=== PATIENT | female | born 1955 | race Caucasian/White ===

== ENCOUNTER 2019-03-08 11:07 | Emergency (ER) | payer OTHER ==
--- OUTSIDE RECORDS SUMMARY | 2019-03-08 11:12 | XMS REPORT ---
:1955 [facility] Address [address] [place] [address] Care Team Providers Name Role Phone Unavailable Unavailable Unavailable Problems This patient has no known problems. Allergies, Adverse Reactions, Alerts This patient has no known allergies or adverse reactions. Medications This patient has no known medications. Results Test Description Test Time Test Comments Text Results Atomic Results Result Comments NM BONE SPECT SCAN CLINICAL INDICATION: M47.817 Spondyls w/o myelopathy or radiculopathy, lumbosacr regionMODALITY: Stockpile dual head gamma cameraTECHNIQUE: 25 mCi Tc 99m MDP are injected IV. After a suitable time delay, whole body imaging images were obtained. SPECT imaging of the lumbar spine is performed with computer and physician-assisted 2-D and 3-D reconstruction.FINDINGS:COMPARISON: Lumbar spine series performed 01/23/2018:Five lumbar type vertebra are present. Mild L4-5 disc space narrowing is observed. Mild to moderate lumbosacral facet arthrosis is observed. There is minimal approximate 2.0 mm retrolisthesis of L2 and approximate 2.0 mm spondylolisthesis of L4. No evidence of dynamic instability. Sclerotic changes are present at the SI joints bilaterally.Symmetric bilateral renal function is observed.Diffuse calvarial hyperostosis is observed. Mild to moderate maxillary and mandibular periodontal change is observed. There are symmetric arthritic changes noted at the acromioclavicular, glenohumeral, sternoclavicular joints bilaterally. Mild to moderate uptake is seen at the left mid foot.SPECT imaging of the lumbar spine demonstrates no significant intervertebral disc uptake to be present. There is mild right L4-5, mild to moderate left L4-5 facet uptake seen. Moderate symmetric SI joint uptake is present.IMPRESSION:See comments above.PQRS 147: [id number]
--- NOTE | 2019-03-08 11:21 | RAD REPORT ---
EXAM DESCRIPTION: CT - Ct Stroke Brain Wo Cont - 03/08/2019 11:14 am CLINICAL HISTORY: NUMBNESS Headache, drowsiness, CVA symptomology COMPARISON: No comparisons TECHNIQUE: All CT scans are performed using dose optimization technique as appropriate and may inclu de automated exposure control or mA/KV adjustment according to patient size. FINDINGS: No intracranial hemorrhage, hydrocephalus or extra-axial fluid collection.No areas of brai n edema or evidence of midline shift. Chronic sinus disease likely present in the maxillary antra. The calvarium is intact. IMPRESSION: No acute intracranial abnormality. The findings were discussed with Dr. Denney on 03/08/2019 at 11:12 a.m. by telephone.
[2019-03-08 11:38] LABS: Absolute Lymphocytes (CBC) 2.1 K/uL (0.7-4.9); Absolute Monocytes 0.6 K/uL (0.1-1.3); Basophils % 0.8 % (0-1.3); Eosinophils % 5.1 % (0-4.4); Hematocrit 38.8 % (36.0-45.0); Lymphocytes % 33.9 % (15.3-44.8); MPV 8.3 fL (7.6-11.3); Monocytes % 10.1 % (3.3-12.3); RBC Red Blood Cell Count 4.24 M/uL (3.86-4.86)
[2019-03-08 11:41] LABS: Protime INR 0.96
--- NOTE | 2019-03-08 11:49 | RAD REPORT ---
EXAM DESCRIPTION: RAD - Chest Single View - 03/08/2019 11:41 am CLINICAL HISTORY: r/o CVA Chest pain. COMPARISON: Chest Pa And Lat (2 Views) dated 05/25/2018; Abdomen Acute Series dated 01/23/2018; CHEST PA AND LAT 2 VIEW dated 12/25/2012; ABDOMEN ACUTE SERIES dated 02/06/2006 FINDINGS: Portable technique limits examination quality. The lungs are grossly clear. The heart is normal in size. No displaced fractures. IMPRESSION: No acute intrathoracic process suspected.
--- NOTE | 2019-03-08 13:51 | ER ---
Nurse's Notes [facility] Name: Jeison Gonzales Age: 64 yrs Sex: Female : 1955 Arrival Date: 03/08/2019 Time: 11:07 Bed 3 Private MD: Diagnosis: Transient cerebral ischemic attacks and related syndromes Presentation: 03/08 11:01 Presenting complaint: Patient states: "about 10 minutes ago both of my lips went numb sv and my vision looked like a zig-zag." Spouse reports "she is also speaking funny." Pt ambulated with her spouse in the back ambulance bay. Transition of care: patient was not received from another setting of care. Onset of symptoms was March 08, 2019 at 10:50. Risk Assessment: Do you want to hurt yourself or someone else? Patient reports no desire to harm self or others. Initial Sepsis Screen: Does the patient meet any 2 criteria? No. Patient's initial sepsis screen is negative. Does the patient have a suspected source of infection? No. Patient's initial sepsis screen is negative. Care prior to arrival: None. 11:01 Method Of Arrival: Ambulatory sv 11:01 Acuity: NEGIN 2 sv 11:35 No acute neurological deficit is noted. Pre-hospital glucose is not applicable to this tw2 patient. Triage Assessment: 11:21 General: Appears in no apparent distress. Behavior is calm, cooperative, appropriate tw2 for age. Pain: Denies pain. 17:02 The onset of the patients symptoms was less than three hours ago. tw2 19:03 The onset of the patients symptoms was March 08, 2019 at 11:16. tw2 Stroke Activation: Symptom onset < 3 hours Physician: Stroke Attending; Name: ; Notified At: ; Arrived At: Physician: Chief Stroke Resident; Name: ; Notified At: ; Arrived At: Physician: Stroke Resident; Name: ; Notified At: ; Arrived At: Physician: ED Attending; Name: Dr Finn; Notified At: 11:03; Arrived At: Physician: ED Resident; Name: ; Notified At: ; Arrived At: Historical: - Allergies: 11:12 Latex, Natural Rubber; sv 11:12 Sulfa (Sulfonamide Antibiotics); sv 11:12 Bactrim DS; sv - PMHx: 11:12 Thyroid problem; High Cholesterol; Hypertension; sv - PSHx: 11:11 Cholecystectomy; sv - Immunization history:: Adult Immunizations up to date. - Social history:: Smoking status: unknown. - Ebola Screening: : No symptoms or risks identified at this time. Screenin:21 Abuse screen: Denies threats or abuse. Nutritional screening: No deficits noted. tw2 Tuberculosis screening: No symptoms or risk factors identified. Fall Risk None identified. 12:07 Patient has been NPO before screening. The patient is alert, able to follow commands. sv The patient does not exhibit slurred or garbled speech The patient is not exhibiting difficulty speaking. The patient does not exhibit difficulty understanding words. The patient is able to swallow own secretions with no drooling or need for suction. Patient tolerated one teaspoon of water. No drooling, immediate coughing, gurgling, or clearing of the throat was noted. The patient tolerated 90mL of water. No drooling, immediate coughing, gurgling, or clearing of the throat was noted. The patient passed the bedside swallow screening. Oral medications may be given as ordered. Contact Physician for further diet orders. Provider notified of bedside swallow screening results: Ayo Finn MD. Assessment: 11:03 Reassessment: Code Stroke called. sv 11:16 Reassessment: Dr. Finn at bedside at this time. tw2 11:31 VAN Scoring: Arm Drift: Patients demonstrates NO arm weakness. Patient is VAN Negative. tw2 Visual Disturbance: Field Cut: Abnormal visual rangel noted. Provider notified of +VAN scoring. Patient has been NPO before screening. The patient is alert, and able to follow commands. The patient does not exhibit slurred or garbled speech. The patient is not exhibiting difficulty speaking. The patient does not exhibit difficulty understanding words. The patient is able to swallow own secretions with no drooling or need for suction. Patient tolerated one teaspoon of water. No drooling, immediate coughing, gurgling, or clearing of the throat was noted. The patient tolerated 90mL of water. No drooling, immediate coughing, gurgling, or clearing of the throat was noted. The patient passed the bedside swallow screening. Oral medications may be given as ordered. Contact Physician for further diet orders. Provider notified of bedside swallow screening results: Ayo Finn MD. General: Appears in no apparent distress. obese, well groomed, Behavior is calm, cooperative, appropriate for age. Pain: Denies pain. Neuro: Level of Consciousness is awake, alert, obeys commands, Oriented to person, place, time, situation. Cardiovascular: Heart tones S1 S2 Capillary refill < 3 seconds Patient's skin is warm and dry. Respiratory: Airway is patent Respiratory effort is even, unlabored, Respiratory pattern is regular, symmetrical, Breath sounds are clear bilaterally. GI: No signs and/or symptoms were reported involving the gastrointestinal system. Abdomen is round non-distended, obese, Bowel sounds present X 4 quads. : No signs and/or symptoms were reported regarding the genitourinary system. EENT: No signs and/or symptoms were reported regarding the EENT system. Derm: No signs and/or symptoms reported regarding the dermatologic system. Musculoskeletal: No signs and/or symptoms reported regarding the musculoskeletal system. Capillary refill < 3 seconds, Range of motion:. 11:31 T-PA (Activase) Screening: Contraindications: Other: per Dr. Finn based on resolution tw2 of symptoms and NIHscore no need for tpa at this time. 12:04 Reassessment: Family decided to get transferred to [facility]. Neuro: Reports sv numbness in mouth, right side of forehead, right eye, right zygomatic area, right side of the nose, right cheek and right mandible and heaviness. 13:20 Reassessment: Patient appears in no apparent distress at this time. No changes from sv previously documented assessment. Patient and/or family updated on plan of care and expected duration. Pain level reassessed. Patient is alert, oriented x 3, equal unlabored respirations, skin warm/dry/pink. 14:25 Reassessment: Patient appears in no apparent distress at this time. No changes from sv previously documented assessment. Patient and/or family updated on plan of care and expected duration. Pain level reassessed. Patient is alert, oriented x 3, equal unlabored respirations, skin warm/dry/pink. 14:26 Reassessment: Report given to Socrates from EMS. sv Vital Signs: 11:06 Pulse 59; Resp 18; Pulse Ox 99% ; sv 11:17 BP 155 / 78; Weight 88.45 kg (R); Height 5 ft. 6 in. (167.64 cm) (R); tw2 11:41 BP 128 / 73; Pulse 56 MON; Resp 15; Pulse Ox 98% on R/A; sv 12:07 BP 129 / 74; Pulse 56 MON; Resp 16; Pulse Ox 99% ; sv 12:30 BP 124 / 64; Pulse 55; Resp 18; Pulse Ox 98% on R/A; sv 11:17 Body Mass Index 31.47 (88.45 kg, 167.64 cm) tw2 11:41 Sinus bradycardia sv 12:07 Sinus Rhythm sv NIH Stroke Scale Scores: 11:23 NIHSS Score: 1 gs 11:31 NIHSS Score: 1 tw2 ED Course: 11:07 Patient arrived in ED. sv 11:07 Gerri Payne RN is Primary Nurse. sv 11:07 Ayo Finn MD is Attending Physician. gs 11:09 Triage completed. sv 11:11 Arm band placed on. sv 11:15 CT Stroke Brain w/o Contrast In Process Unspecified. EDMS 11:16 Bed in low position. Call light in reach. Side rails up X2. shelter monitor on. Pulse tw2 ox on. NIBP on. Dr. Finn at bedside at this time. 11:16 Inserted saline lock: 20 gauge in right antecubital area, using aseptic technique. tw2 ,using aseptic technique. ELIZABETH Diaz Blood collected. Patient maintains SpO2 saturation greater than 95% on room air. 11:20 EKG done, by cartography/mapping technician. reviewed by Ayo Finn MD. at1 11:26 X-ray completed. Portable x-ray completed in exam room. Patient tolerated procedure jb2 well. 11:27 Stroke CXR 1 View In Process Unspecified. EDMS 12:58 transfer approval from receiving facility. sv 13:58 No provider procedures requiring assistance completed. Patient admitted, IV remains in sv place. intact. Administered Medications: No medications were administered Point of Care Testing: Blood Glucose: 11:06 Blood Glucose: 124 mg/dL; sv Ranges: Outcome: 13:35 Transferred by ground EMS to [facility], Transfer form completed. sv X-rays sent w/ patient. Note: Report given to Ritu JOHNSON at [facility]. 13:35 Condition: stable 13:35 Instructed on the need for admit. 13:50 ER care complete, transfer ordered by 14:26 Patient left the ED. NIH Stroke Scale - NIH Stroke Score Date: 03/08/2019 Time: 11:23 Total Score = 1 1a. Level of Consciousness (LOC) - 0(Alert) 1b. Level of Consciousness (LOC) (Year \\T\\ Age) - 0(Both) 1c. LOC Commands (Open \\T\\ Closes Eyes/Mixer Operator Raw Salt) - 0(Both) 2. Best Gaze (Lateral Gaze Paresis) - 0(Normal) 3. Visual Field Loss - 0(No visual loss) 4. Facial Palsy - 0(Normal) 5a. Left Arm: Motor (10-second hold) - 0(No drift) 5b. Right Arm: Motor (10-second hold) - 0(No drift) 6a. Left Leg: Motor (5-second hold - always test supine) - 0(No drift) 6b. Right Leg: Motor (5-second hold - always test supine) - 0(No drift) 7. Limb Ataxia (finger/nose \\T\\ heel/woo - test with eyes open) - 0(Absent) 8. Sensory Loss (pinprick arms/legs/face) - 1(Mild to moderate loss) 9. Best Language: Aphasia (description/naming/reading) - 0(No aphasia) 10. Dysarthria (speech clarity - read or repeat words) - 0(Normal) 11. Extinction and Inattention (visual/tactile/auditory/spatial/personal) - 0(No abnormality) Initials: NIH Stroke Scale - NIH Stroke Score Date: 03/08/2019 Time: 11:31 Total Score = 1 1a. Level of Consciousness (LOC) - 0(Alert) 1b. Level of Consciousness (LOC) (Year \\T\\ Age) - 0(Both) 1c. LOC Commands (Open \\T\\ Closes Eyes/Mixer Operator Raw Salt) - 0(Both) 2. Best Gaze (Lateral Gaze Paresis) - 1(Partial gaze palsy) 3. Visual Field Loss - 0(No visual loss) 4. Facial Palsy - 0(Normal) 5a. Left Arm: Motor (10-second hold) - 0(No drift) 5b. Right Arm: Motor (10-second hold) - 0(No drift) 6a. Left Leg: Motor (5-second hold - always test supine) - 0(No drift) 6b. Right Leg: Motor (5-second hold - always test supine) - 0(No drift) 7. Limb Ataxia (finger/nose \\T\\ heel/woo - test with eyes open) - 0(Absent) 8. Sensory Loss (pinprick arms/legs/face) - 0(Normal) 9. Best Language: Aphasia (description/naming/reading) - 0(No aphasia) 10. Dysarthria (speech clarity - read or repeat words) - 0(Normal) 11. Extinction and Inattention (visual/tactile/auditory/spatial/personal) - 0(No abnormality) Initials: tw2 Signatures: Dispatcher [employer] Gerri Farley RN RN Derek Gibson jb2 Leeann Baker, in home tutor EKG Tat1 Jocelyn Armando RN RN tw2 Ayo Finn MD MD gs
--- NOTE | 2019-03-08 13:51 | EDPHYS ---
Physician Documentation [facility] Name: Jeison Gonzales Age: 64 yrs Sex: Female : 1955 Arrival Date: 03/08/2019 Time: 11:07 Bed 3 Private MD: ED Physician Ayo Finn HPI: 03/08 11:23 This 64 yrs old Female presents to ER via Ambulatory with complaints of gs Numbness Of Lips, Vision Problem. 11:23 The patient presents to the emergency department with paresthesias of the right side of gs the face, a vision problem, bright lights. Onset: The symptoms/episode began/occurred at 10:50. Associated signs and symptoms: Pertinent negatives: altered mental status. Severity of symptoms: At their worst the symptoms were severe in the emergency department the symptoms have improved markedly. Patient's baseline: Neuro: alert and fully oriented, Motor: no deficits, Ambulation: walks without assistance, Speech: normal. Current symptoms: tingling numbness right face. The patient has not experienced similar symptoms in the past. Historical: - Allergies: 11:12 Latex, Natural Rubber; sv 11:12 Sulfa (Sulfonamide Antibiotics); sv 11:12 Bactrim DS; sv - PMHx: 11:12 Thyroid problem; High Cholesterol; Hypertension; sv - PSHx: 11:11 Cholecystectomy; sv - Immunization history:: Adult Immunizations up to date. - Social history:: Smoking status: unknown. - Ebola Screening: : No symptoms or risks identified at this time. ROS: 11:23 All other systems are negative. gs Exam: 11:23 Head/Face: Normocephalic, atraumatic. Eyes: Pupils equal round and reactive to light, gs extra-ocular motions intact. Lids and lashes normal. Conjunctiva and sclera are non-icteric and not injected. Cornea within normal limits. Periorbital areas with no swelling, redness, or edema. ENT: Nares patent. No nasal discharge, no septal abnormalities noted. Tympanic membranes are normal and external auditory canals are clear. Oropharynx with no redness, swelling, or masses, exudates, or evidence of obstruction, uvula midline. Mucous membranes moist. Neck: Trachea midline, no thyromegaly or masses palpated, and no cervical lymphadenopathy. Supple, full range of motion without nuchal rigidity, or vertebral point tenderness. No Meningismus. Chest/axilla: Normal chest wall appearance and motion. Nontender with no deformity. No lesions are appreciated. Cardiovascular: Regular rate and rhythm with a normal S1 and S2. No gallops, murmurs, or rubs. Normal PMI, no JVD. No pulse deficits. Respiratory: Lungs have equal breath sounds bilaterally, clear to auscultation and percussion. No rales, rhonchi or wheezes noted. No increased work of breathing, no retractions or nasal flaring. Abdomen/GI: Soft, non-tender, with normal bowel sounds. No distension or tympany. No guarding or rebound. No evidence of tenderness throughout. Back: No spinal tenderness. No costovertebral tenderness. Full range of motion. Skin: Warm, dry with normal turgor. Normal color with no rashes, no lesions, and no evidence of cellulitis. MS/ Extremity: Pulses equal, no cyanosis. Neurovascular intact. Full, normal range of motion. 11:23 Constitutional: The patient appears alert, awake. 11:23 Neuro: Orientation: is normal, Mentation: is normal, Memory: is normal, Cranial nerves: normal except decreased v2,3 on right. 11:23 Neuro: Cerebellar function: normal finger to nose testing, Motor: moves all fours, gs strength is normal, Sensation: pin prick is decreased in the right cheek and right jaw. 11:28 ECG was reviewed by the Attending Physician. Vital Signs: 11:06 Pulse 59; Resp 18; Pulse Ox 99% ; sv 11:17 BP 155 / 78; Weight 88.45 kg (R); Height 5 ft. 6 in. (167.64 cm) (R); tw2 11:41 BP 128 / 73; Pulse 56 MON; Resp 15; Pulse Ox 98% on R/A; sv 12:07 BP 129 / 74; Pulse 56 MON; Resp 16; Pulse Ox 99% ; sv 12:30 BP 124 / 64; Pulse 55; Resp 18; Pulse Ox 98% on R/A; sv 11:17 Body Mass Index 31.47 (88.45 kg, 167.64 cm) tw2 11:41 Sinus bradycardia sv 12:07 Sinus Rhythm sv NIH Stroke Scale Scores: 11:23 NIHSS Score: 1 gs 11:31 NIHSS Score: 1 tw2 MDM: 11:21 Patient medically screened. gs 13:49 Data reviewed: vital signs, nurses notes, lab test result(s), EKG, radiologic studies. gs Counseling: I had a detailed discussion with the patient and/or guardian regarding: the historical points, exam findings, and any diagnostic results supporting the discharge/admit diagnosis, lab results, radiology results, the need to transfer to another facility, [facility] does not immediately have the required specialist. Response to treatment: the patient's symptoms have markedly improved after treatment. ED course: ss 1 no tpa due to pt understanding that risk greater than benefit. no progression of symptoms. 03/08 11:07 Order name: Basic Metabolic Panel; Complete Time: 12:10 03/08 11:07 Order name: CBC with Diff; Complete Time: 12:03/08 11:07 Order name: Protime (+inr); Complete Time: 12:10 03/08 11:07 Order name: Ptt, Activated; Complete Time: 12:10 03/08 11:07 Order name: CT Stroke Brain w/o Contrast; Complete Time: 12:10 03/08 11:23 Order name: glucometer results - FOR PT WITH NO ID; Complete Time: 12:10 iw 03/08 11:07 Order name: Stroke CXR 1 View; Complete Time: 12:03/08 11:07 Order name: EKG; Complete Time: 11:03/08 11:07 Order name: Accucheck; Complete Time: 11:16 03/08 11:07 Order name: Cardiac monitoring; Complete Time: 11:03/08 11:07 Order name: EKG - Nurse/Tech; Complete Time: 11:38 03/08 11:07 Order name: IV Saline Lock; Complete Time: 11:03/08 11:07 Order name: Labs collected and sent; Complete Time: 11:16 03/08 11:07 Order name: NPO; Complete Time: 11:39 03/08 11:07 Order name: O2 Per Protocol; Complete Time: 11:39 03/08 11:07 Order name: O2 Sat Monitoring; Complete Time: 11:39 03/08 11:07 Order name: Stroke Swallow Screen; Complete Time: 14:16 sv EC:28 Rate is 55 beats/min. Rhythm is regular. AL interval is normal. QRS interval is normal. gs No Q waves. T waves are Normal. No ST changes noted. Clinical impression: Normal ECG. Interpreted by me. Administered Medications: No medications were administered Point of Care Testing: Blood Glucose: 11:06 Blood Glucose: 124 mg/dL; sv Ranges: Critical Glucose Levels:Adult <50 mg/dl or >400 mg/dl <40 mg/dl or >180 mg/dl Disposition: 03/08/19 13:50 Transfer ordered to [facility]. Diagnosis is Transient cerebral ischemic attacks and related syndromes. - Reason for transfer: Higher level of care. - Accepting physician is faria. - Condition is Stable. - Problem is new. - Symptoms have improved. NIH Stroke Scale - NIH Stroke Score Date: 03/08/2019 Time: 11:23 Total Score = 1 1a. Level of Consciousness (LOC) - 0(Alert) 1b. Level of Consciousness (LOC) (Year \T\ Age) - 0(Both) 1c. LOC Commands (Open \T\ Closes Eyes/Manufacturing Inspector) - 0(Both) 2. Best Gaze (Lateral Gaze Paresis) - 0(Normal) 3. Visual Field Loss - 0(No visual loss) 4. Facial Palsy - 0(Normal) 5a. Left Arm: Motor (10-second hold) - 0(No drift) 5b. Right Arm: Motor (10-second hold) - 0(No drift) 6a. Left Leg: Motor (5-second hold - always test supine) - 0(No drift) 6b. Right Leg: Motor (5-second hold - always test supine) - 0(No drift) 7. Limb Ataxia (finger/nose \T\ heel/woo - test with eyes open) - 0(Absent) 8. Sensory Loss (pinprick arms/legs/face) - 1(Mild to moderate loss) 9. Best Language: Aphasia (description/naming/reading) - 0(No aphasia) 10. Dysarthria (speech clarity - read or repeat words) - 0(Normal) 11. Extinction and Inattention (visual/tactile/auditory/spatial/personal) - 0(No abnormality) Initials: NIH Stroke Scale - NIH Stroke Score Date: 03/08/2019 Time: 11:31 Total Score = 1 1a. Level of Consciousness (LOC) - 0(Alert) 1b. Level of Consciousness (LOC) (Year \T\ Age) - 0(Both) 1c. LOC Commands (Open \T\ Closes Eyes/Manufacturing Inspector) - 0(Both) 2. Best Gaze (Lateral Gaze Paresis) - 1(Partial gaze palsy) 3. Visual Field Loss - 0(No visual loss) 4. Facial Palsy - 0(Normal) 5a. Left Arm: Motor (10-second hold) - 0(No drift) 5b. Right Arm: Motor (10-second hold) - 0(No drift) 6a. Left Leg: Motor (5-second hold - always test supine) - 0(No drift) 6b. Right Leg: Motor (5-second hold - always test supine) - 0(No drift) 7. Limb Ataxia (finger/nose \T\ heel/woo - test with eyes open) - 0(Absent) 8. Sensory Loss (pinprick arms/legs/face) - 0(Normal) 9. Best Language: Aphasia (description/naming/reading) - 0(No aphasia) 10. Dysarthria (speech clarity - read or repeat words) - 0(Normal) 11. Extinction and Inattention (visual/tactile/auditory/spatial/personal) - 0(No abnormality) Initials: tw2 Signatures: Dispatcher [employer] Gerri Farley RN RN sv Starr, Gregory, MD MD Corrections: (The following items were deleted from the chart) 11:26 11:23 Current symptoms: tingling numbness left face, gs 14:26 13:50 03/08/2019 13:50 Transfer ordered to [facility]. sv Diagnosis is Transient cerebral ischemic attacks and related syndromes. Reason for transfer: Higher level of care. Accepting physician is [facility]. Condition is Stable. Problem is new. Symptoms have improved. gs
== END 2019-03-08 14:26 | disposition short-term general hospital (02) ==
LOC: ER 11:07
DX: G45.9 Transient cerebral ischemic attack, unspecified (principal); R20.2 Paresthesia of skin; E78.00 Pure hypercholesterolemia, unspecified; I10 Essential (primary) hypertension; Z88.2 Allergy status to sulfonamides; Z88.1 Allergy status to other antibiotic agents; Z91.040 Latex allergy status
CPT/HCPCS: 36415; 70450; 71045; 80048; 82962; 85025; 85610; 85730; 93005; 99285

== ENCOUNTER 2022-02-19 15:20 | Inpatient (IN) | payer OTHER, MEDICARE ==
--- OUTSIDE RECORDS SUMMARY | 2022-02-19 13:20 | XMS REPORT | Continuity of Care Document ---
:1955 Author Organization [facility] Address [address] [place] [address] Care Team Providers Name Role Phone Radiology Attending Clinician Unavailable RADIOLOGY Attending Clinician Unavailable Siria Attending Clinician Unavailable Lionel CALVILLO Attending Clinician Unavailable TOBIAS Admitting Clinician Unavailable Payers Payer Name Policy Type Policy Number Effective Date Expiration Date S ource Problems This patient has no known problems. Allergies, Adverse Reactions, Alerts Allergy Allergy Status Severity Reaction(s) Onset Inactive Treating Comm ents Source Name Type Date Date Clinician NO KNOWN Drug Active [facility] Social History Social Habit Start Date Stop Date Quantity Comments Source Sex Assigned At [facility] Smoking Status Start Date Stop Date Source Unknown if ever smoked [facility] Medications This patient has no known medications. Procedures Procedure Date / Time Performing Clinician Source Performed XR CHEST 2 VW 2020-07-14 18:45:12 Radha Araujo [facility] PATIENT FINANCIAL 2020-07-14 18:22:34 Doctor Unassigned, Un [facility] POLICY [facility] NO SHOW OR MISSED 2020-07-14 18:22:21 Doctor Unacharlotte, [facility] APPOINTMENT POLICY [facility] ACKNOWLEDGEMENT NOTICE OF PRIVACY 2020-07-14 18:22:08 Doctor Victor Manuel, [facility] PRACTICES [facility] CONSENT/REFUSAL FOR 2020-07-14 18:21:54 Doctor Victor Manuel, [facility] DIAGNOSIS AND TREATMENT [facility] ASSIGNMENT OF BENEFITS 2020-07-14 18:21:40 [facility] Encounters Start End Encounter Admission Attending Care Care Encounter Source Date/Time Date/Time Type Type Clinicians Facility Department ID 2020-07-14 2020-07-14 Hospital Radiology [facility] [id number] Univers 13:15:00 23:59:00 Encounter Stephenie [id number] ity Jeremi [id number] [facility] [id number] [facility] [address] Branch 2020-07-14 2020-07-14 Outpatient R RADIOLOGY [facility] [id number] Univers 00:00:00 00:00:00 ity of [facility] Results Test Description Test Time Test Results Result Source Comments Comments XR CHEST 2 VW 2020-06-25 No acute [facility] cardiopulmonary [facility] 18:47:15 disease. CHEST 2 Branch VIEWS: HISTORY:Cough TECHNIQUE:: ?PA and lateral views of the chest are obtained. FINDINGS: The lungs are clear. The heart size and mediastinal silhouetteare normal. No pleural effusion or pneumothorax is seen. A loop recorder is seen superimposed over the left heart border [facility], Radiant Results Inft User - 07/14/2020 1:48 PM CDTCHEST 2 VIEWS:HISTORY:CoughTEC HNIQUE:: PA and lateral views of the chest are obtained. FINDINGS: The lungs are clear. The heart size and mediastinal silhouetteare normal. No pleural effusion or pneumothorax is seen.A loop recorder is seen superimposed over the left heart borderIMPRESSIONNo acute cardiopulmonary disease. FL, MYELOGRAM, Reason for FINAL REPORT PATIENT LUMBAR 2 Exam:->Low ID: [id number] LUMBAR 15:02:00 back pain MYELOGRAM, CT MYELOGRAM OF THE LUMBAR SPINE HISTORY: Low back and left leg pain, lumbar spinal canal stenosis COMPARISON: No comparison lumbar spine imaging CONSENT: The risks, benefits, and alternatives related to the procedure were discussed with the patient. The patient expressed understanding and informed written consent was obtained. LUMBAR MYELOGRAM TECHNIQUE: With the patient prone, the L2-L3 level was localized using fluoroscopy. The skin was marked. After the usual sterile preparation and the application of 2 cc of 1% lidocaine local anesthesia buffered with sodium bicarbonate, using a dorsal percutaneous approach a 22-gauge spinal needle was advanced into the thecal sac at L2-L3 using fluoroscopic assistance. Subsequently, 15 cc of Isovue-M 200 was injected and successful intrathecal contrast administration was confirmed with fluoroscopy. With the patient semierect, AP, bilateral shallow and steep oblique, and lateral spot digital images of lumbar spine were obtained. The patient was subsequently sent to CT for the CT myelogram. FLUOROSCOPY TIME: 0.9 minutes FLUOROSCOPIC IMAGES: 9 LUMBAR MYELOGRAM FINDINGS: Mild ventral impression on the thecal sac at L1-L2, L2-L3, L3-4. High-grade partial myelographic block at L4-L5. Mild L4 spondylolisthesis. Please refer to the CT lumbar myelogram report below for further lumbar spine details. CT MYELOGRAM TECHNIQUE: CT of the lumbar spine was performed after the intrathecal administration of [id number]. Axial images were generated as were multiplanar reformatted images in the sagittal and coronal planes. The examination was performed to conform to our departmental dose optimization program which includes automated exposure control, adjustment of the mA and/or kV according to patient size and/or use of iterative reconstruction techniques. FINDINGS: Levels: 5 lumbar vertebral bodies. The conus terminates at T12-L1. T12-L1: Unremarkable. L1-L2: Mild disc bulge. L2-L3: Mild disc bulge and facet joint arthrosis. Mild foraminal stenosis. L3-L4: Mild disc bulge and facet joint arthrosis. Mild spinal canal and foraminal stenosis. L4-L5: Mild degenerative L4 spondylolisthesis. Moderate central disc protrusion, exerting moderate mass effect on the ventral aspect of the thecal sac, superimposed on a mild disc bulge. Severe facet joint osteoarthritis. Moderate to severe spinal canal stenosis. Mild to moderate foraminal stenosis. L5-S1: Minimal disc bulge. Moderate right and severe left facet joint arthrosis. Mild left lateral recess stenosis. Mild to moderate bilateral foraminal stenosis. Bones: No lumbar compression fracture. No destructive bone lesions are identified. Retroperitoneum: Mild arterial calcifications. DISPOSITION: The patient tolerated the procedure well, without immediate complications. The patient left fluoroscopy and CT in stable condition. IMPRESSION: 1. Multilevel degenerative disease, most advanced at L4-L5 where there is moderate to severe spinal canal stenosis, resulting in a partial myelographic block. Signed: Carlos Archer MDReport Verified Date/Time: 11/25/2019 15:02:58 Reading Location: [facility] Radiology Reading Room , SPINE, FINAL REPORT PATIENT LUMBAR, CONTRAST 2 ID: [id number] LUMBAR 15:02:00 MYELOGRAM, CT MYELOGRAM OF THE LUMBAR SPINE HISTORY: Low back and left leg pain, lumbar spinal canal stenosis COMPARISON: No comparison lumbar spine imaging CONSENT: The risks, benefits, and alternatives related to the procedure were discussed with the patient. The patient expressed understanding and informed written consent was obtained. LUMBAR MYELOGRAM TECHNIQUE: With the patient prone, the L2-L3 level was localized using fluoroscopy. The skin was marked. After the usual sterile preparation and the application of 2 cc of 1% lidocaine local anesthesia buffered with sodium bicarbonate, using a dorsal percutaneous approach a 22-gauge spinal needle was advanced into the thecal sac at L2-L3 using fluoroscopic assistance. Subsequently, 15 cc of Isovue-M 200 was injected and successful intrathecal contrast administration was confirmed with fluoroscopy. With the patient semierect, AP, bilateral shallow and steep oblique, and lateral spot digital images of lumbar spine were obtained. The patient was subsequently sent to CT for the CT myelogram. FLUOROSCOPY TIME: 0.9 minutes FLUOROSCOPIC IMAGES: 9 LUMBAR MYELOGRAM FINDINGS: Mild ventral impression on the thecal sac at L1-L2, L2-L3, L3-4. High-grade partial myelographic block at L4-L5. Mild L4 spondylolisthesis. Please refer to the CT lumbar myelogram report below for further lumbar spine details. CT MYELOGRAM TECHNIQUE: CT of the lumbar spine was performed after the intrathecal administration of [id number]. Axial images were generated as were multiplanar reformatted images in the sagittal and coronal planes. The examination was performed to conform to our departmental dose optimization program which includes automated exposure control, adjustment of the mA and/or kV according to patient size and/or use of iterative reconstruction techniques. FINDINGS: Levels: 5 lumbar vertebral bodies. The conus terminates at T12-L1. T12-L1: Unremarkable. L1-L2: Mild disc bulge. L2-L3: Mild disc bulge and facet joint arthrosis. Mild foraminal stenosis. L3-L4: Mild disc bulge and facet joint arthrosis. Mild spinal canal and foraminal stenosis. L4-L5: Mild degenerative L4 spondylolisthesis. Moderate central disc protrusion, exerting moderate mass effect on the ventral aspect of the thecal sac, superimposed on a mild disc bulge. Severe facet joint osteoarthritis. Moderate to severe spinal canal stenosis. Mild to moderate foraminal stenosis. L5-S1: Minimal disc bulge. Moderate right and severe left facet joint arthrosis. Mild left lateral recess stenosis. Mild to moderate bilateral foraminal stenosis. Bones: No lumbar compression fracture. No destructive bone lesions are identified. Retroperitoneum: Mild arterial calcifications. DISPOSITION: The patient tolerated the procedure well, without immediate complications. The patient left fluoroscopy and CT in stable condition. IMPRESSION: 1. Multilevel degenerative disease, most advanced at L4-L5 where there is moderate to severe spinal canal stenosis, resulting in a partial myelographic block. Signed: Carlos Archer MDReport Verified Date/Time: 11/25/2019 15:02:58 Reading Location: [facility] Radiology Reading Room BONE SPECT CLINICAL INDICATION: SCAN 3 M47.816 Spondylosis 17:31:58 w/o myelopathy or radiculopathy, lumbar regionMODALITY: Discovery NM/CT 670TECHNIQUE: 25 mCi Tc 99m MDP are injected IV. After a suitable time delay, whole body imaging images were obtained. SPECT imaging of the lumbar spine is performed with computer and physician-assisted 2-D and 3-D reconstruction. Co-registered low dose limited diagnostic CT images are obtained at the level of SPECT imaging.Computed Tomography Dose Index: 5.44 mGy.FINDINGS:COMPARISO N: Fusion CT exam.CT Comments: none.Symmetric bilateral renal function is observed.Mild arthritic changes are noted at the shoulders, sternoclavicular joints, wrists bilaterally, medial compartment left knee. Mild to moderate uptake is noted at the left midfoot.SPECT CT fusion imaging of the lumbar spine demonstrates no significant intervertebral disc uptake to be present. Moderate right L4-5 facet, mild to moderate left L4-5 facet uptake is most conspicuous. Moderate increased SI joint uptake is noted bilaterally as well.IMPRESSION:See comments above.PQRS 147: 3570F CT LUMBAR WO CLINICAL INDICATION: 3 M54.5 low back pain 17:05:11 MODALITY: L99.com CT (Iterative dose reduction techniques are utilized.)TECHNIQUE: Axial slices obtained through the lumbar spine at appropriate intervals without contrast. Multiplanar reformatted images were obtained.Computed Tomography Dose Index: 26.1 mGy.IMPRESSION:1. 5 mm posterior disc protrusion at the L4-L5 level. The subarachnoid space is moderately to severely attenuated at this level.2. 1 mm posterior protrusion at the L3-L4 level.3. 1 mm spondylotic posterior protrusion at the L5-S1 level.4. 1.5 mm retrolisthesis of L1 on L2 and L2 on L3, without significant superimposed protrusion at either level.5. Moderate left L5-S1 and mild bilateral L4-L5 neural foraminal stenosis.6. Moderate to severe facet arthrosis at the L4-S1 levels, detailed below.7. Minimal diffuse lumbar levoscoliosis.FINDINGS :COMPARISON: noneGeneral observations: Five [id number] lumbar-type vertebral bodies are present. Minimal diffuse lumbar levoscoliosis is present. Mild to moderate multilevel anterior spondylosis is present. No fractures or destructive osseous lesions are seen.FINDINGS AT SPECIFIC LEVELS:L5-S1: 1-mm spondylotic posterior protrusion is evident. Central canal is patent. Moderate left neural foraminal stenosis is evident. The right neural foramen is patent. Severe left and moderate to severe right facet arthropathy is seen.L4-L5: 5 mm posterior protrusion moderately effaces the anterior aspect of thecal sac. Subarachnoid space is moderately to severely attenuated. The thecal sac measures 5 mm in anteroposterior dimension. Mild bilateral neural foraminal stenosis is evident. Moderate to severe bilateral facet arthropathy is seen.L3-L4: 1 mm posterior protrusion is evident. Central canal is patent. Bilateral neural foramina are patent. Facet joints appear unremarkable.L2-L3: 1.5 mm retrolisthesis of L2 on L3 is evident without superimposed protrusion. Central canal is patent. Bilateral neural foramina are patent. Facet joints appear unremarkable.L1-L2: 1.5 mm retrolisthesis of L1 on L2 is evident without superimposed protrusion. Central canal and bilateral neural foramina remain patent. Facet joints appear unremarkable. HEMOGLOBIN A1C 2019-03-09 11:10:00 Test Item Value Reference Range Interpretation Comme nts HEMOGLOBIN A1C (Similar Pages) (test code = 368) 6.1 % 4.3-6.1 TSH/FREE T4 IF [id number] 06:01:00 Test Item Value Reference Range Interpretation Comments THYROID STIMULATING HORMONE 2.42 uIU/mL 0.35-4.94 (Similar Pages) (test code = 772) VITAMIN B12 AND [id number] 06:01:00 Test Item Value Reference Range Interpretation Comments VITAMIN B12 (BEAKER) (test code = 401 pg/mL 213-816 774) FOLATE (BEAKER) (test code = 362) 11.6 ng/mL >=7.0 LIPID [id number] 05:50:00 Test Item Value Reference Range Interpretation Comments TRIGLYCERIDES (BEAKER) (test code = 184 mg/dL 540) CHOLESTEROL (BEAKER) (test code = 161 mg/dL 631) HDL CHOLESTEROL (BEAKER) (test code 43 mg/dL = 976) LDL CHOLESTEROL CALCULATED (BEAKER) 81 mg/dL (test code = 633) Triglyceride Reference Range: Low Risk <150 Borderline 150-199 High Risk 200-499 Very High Risk >=500Cholesterol Reference Range: Low Risk <200 Borderline 200-239 High Risk >240HDL Cholesterol Reference Range: Low Risk >=60 High Risk <40LDL Cholesterol Reference Range: Optimal <100 Near Optimal 100-129 Borderline 130-159 High 160-189 Very High >=190 FastingBASIC METABOLIC [id number] 05:50:00 Test Item Value Reference Range Interpretation Comments SODIUM (BEAKER) 140 meq/L 136-145 (test code = 381) POTASSIUM (BEAKER) 4.1 meq/L 3.5-5.1 (test code = 379) CHLORIDE (BEAKER) 109 meq/L 98-107 H (test code = 382) CO2 (BEAKER) (test 23 meq/L 22-29 code = 355) BLOOD UREA NITROGEN 14 mg/dL 7-21 (BEAKER) (test code = 354) CREATININE (BEAKER) 0.77 mg/dL 0.57-1.25 (test code = 358) GLUCOSE RANDOM 91 mg/dL 70-105 (BEAKER) (test code = 652) CALCIUM (BEAKER) 9.4 mg/dL 8.4-10.2 (test code = 697) EGFR (BEAKER) (test 75 mL/min/1.73 ESTIMA BELEM GFR IS code = 1092) sq m NOT ACCURATE CREATININE CLEARANCE IN PREDICTING GLOMERULAR FILTRATION RATE . ESTIMATED GFR I S NOT APPLICABLE FOR DIALYSIS PATIEN TS. FastingCBC W/PLT COUNT & AUTO [id number] 04:58:00 Test Item Value Reference Range Interpretation Comments WHITE BLOOD CELL COUNT (BEAKER) 5.8 K/ L 3.5-10.5 (test code = 775) RED BLOOD CELL COUNT (BEAKER) 3.87 M/ L 3.93-5.22 L (test code = 761) HEMOGLOBIN (BEAKER) (test code = 11.8 GM/DL 11.2-15.7 410) HEMATOCRIT (BEAKER) (test code = 36.3 % 34.1-44.9 411) MEAN CORPUSCULAR VOLUME (BEAKER) 93.8 fL 79.4-94.8 (test code = 753) MEAN CORPUSCULAR HEMOGLOBIN 30.5 pg 25.6-32.2 (BEAKER) (test code = 751) MEAN CORPUSCULAR HEMOGLOBIN CONC 32.5 GM/DL 32.2-35.5 (BEAKER) (test code = 752) RED CELL DISTRIBUTION WIDTH 12.9 % 11.7-14.4 (BEAKER) (test code = 412) PLATELET COUNT (BEAKER) (test 270 K/CU MM 150-450 code = 756) MEAN PLATELET VOLUME (BEAKER) 9.8 fL 9.4-12.3 (test code = 754) NUCLEATED RED BLOOD CELLS 0 /100 WBC 0-0 (BEAKER) (test code = 413) NEUTROPHILS RELATIVE PERCENT 51 % (BEAKER) (test code = 429) LYMPHOCYTES RELATIVE PERCENT 37 % (BEAKER) (test code = 430) MONOCYTES RELATIVE PERCENT 11 % (BEAKER) (test code = 431) EOSINOPHILS RELATIVE PERCENT 0 % (BEAKER) (test code = 432) BASOPHILS RELATIVE PERCENT 1 % (BEAKER) (test code = 437) NEUTROPHILS ABSOLUTE COUNT 2.94 K/ L 1.56-6.13 (BEAKER) (test code = 670) LYMPHOCYTES ABSOLUTE COUNT 2.13 K/ L 1.18-3.74 (BEAKER) (test code = 414) MONOCYTES ABSOLUTE COUNT (BEAKER) 0.66 K/ L 0.24-0.36 H (test code = 415) EOSINOPHILS ABSOLUTE COUNT 0.00 K/ L 0.04-0.36 L (BEAKER) (test code = 416) BASOPHILS ABSOLUTE COUNT (BEAKER) 0.08 K/ L 0.01-0.08 (test code = 417) IMMATURE GRANULOCYTES-RELATIVE 0 % 0-1 PERCENT (BEAKER) (test code = 2801) NM BONE SPECT SCANCLINICAL INDICATION: M47.817 Spondyls w/o myelopathy or radiculopathy, lumbosacr regionMODALITY:Lumatix dual head gamma cameraTECHNIQUE: 25 mCi Tc [...] SI joints bilaterally.Symmetric bilateral renal function is o bserved.Diffuse calvarial hyperostosis is observed. Mild to moderate maxillary and mandibular periodontal change is observed. There are symmetric arthritic changes noted at the acromioclavicular, glenohumeral, sternoclavicular joints bilaterally. Mild to moderate uptake is seen at the left mid foot.SPECT imaging of the lumbar spine demonstrates no significant intervertebral disc uptake to be present.There is mild right L4-5, mild to moderate left L4-5 facet uptake seen. Moderate symmetric SI joint uptake is present.IMPRESSION:See comments above.PQRS 147: 2000F
[2022-02-19] MEDS ORDERED: LORazepam 2 MG/ML VIAL IV PRN (15:42)
[2022-02-19] MEDS ORDERED: HYDROMORPHONE HCL 1 MG/ML INJ IV PRN (15:43)
[2022-02-19] MEDS ORDERED: ONDANSETRON 4 MG/2 ML VIAL ONE (15:49)
[2022-02-19] MEDS ORDERED: HYDROMORPHONE HCL 1 MG/ML INJ ONE (15:49)
--- NOTE | 2022-02-19 15:52 | ER ---
Nurse's Notes [facility] Name: Jeison Gonzales Age: 67 yrs Sex: Female : 1955 Arrival Date: 02/19/2022 Time: 15:33 Bed Direct Admit Private MD: Diagnosis: Diverticulitis of intestine, part unspecified, without perforation or abscess without bleeding Presentation: 02/19 15:38 Chief complaint: Patient states: Direct Admit from Dr. Carr DX diverticulitis. Pt is ss awaiting COVID results prior to receiving room assignment. Pt is requesting pain medication for abd pain. 15:38 Onset of symptoms is unknown. ss 15:38 Method Of Arrival: Wheelchair ss 15:38 Acuity: NEGIN 3 ss 15:38 Initial Sepsis Screen: Does the patient meet any 2 criteria? HR > 90 bpm. No. Patient's bp initial sepsis screen is negative. Does the patient have a suspected source of infection? No. Patient's initial sepsis screen is negative. Risk Assessment: Do you want to hurt yourself or someone else? Patient reports no desire to harm self or others. 15:54 Coronavirus screen: At this time, the client does not indicate any symptoms associated bp with coronavirus-19. Ebola Screen: No symptoms or risks identified at this time. Triage Assessment: 15:38 General: Appears in no apparent distress. uncomfortable, Behavior is calm, cooperative, bp appropriate for age. Pain: Complains of pain in left upper quadrant. EENT: No deficits noted. Neuro: No deficits noted. Cardiovascular: No deficits noted. Respiratory: No deficits noted. GI: Reports upper abdominal pain, nausea. : No signs and/or symptoms were reported regarding the genitourinary system. Derm: No deficits noted. Musculoskeletal: No deficits noted. Historical: - Allergies: 15:44 Bactrim DS; ss 15:44 Latex, Natural Rubber; ss 15:44 Sulfa (Sulfonamide Antibiotics); ss - PMHx: 15:44 High Cholesterol; Hypertension; Thyroid problem; ss - Immunization history:: Client reports receiving the 2nd dose of the Covid vaccine. - Social history:: Smoking status: Patient denies any tobacco usage or history of. Screenin:38 Abuse screen: Denies threats or abuse. Denies injuries from another. Nutritional bp screening: No deficits noted. Tuberculosis screening: No symptoms or risk factors identified. Fall Risk None identified. Assessment: 15:38 General: SEE TRIAGE NOTE. bp Vital Signs: 15:38 BP 120 / 68; Pulse 100; Resp 16; Temp 98.1; Pulse Ox 95% ; Weight 85.73 kg; Height 5 bp ft. 5 in. (165.10 cm); 16:01 BP 131 / 79; Pulse 86; Resp 18; Pulse Ox 96% on R/A; ld1 15:38 Body Mass Index 31.45 (85.73 kg, 165.10 cm) bp ED Course: 15:33 Patient arrived in ED. ld1 15:34 Socrates Stephen PA is PHCP. jr8 15:[address] DO is Attending Physician. jr8 15:38 Arm band placed on. bp 15:38 Patient has correct armband on for positive identification. Bed in low position. Call bp light in reach. Side rails up X2. 15:44 Triage completed. ss 15:49 Romeo Carr MD is Hospitalizing Provider. ss 16:01 Vy Buitrago, ELIZABETH is Primary Nurse. ld1 16:01 No provider procedures requiring assistance completed. Inserted saline lock: 20 gauge ld1 in right antecubital area, using aseptic technique. Blood collected. 16:02 Patient admitted, IV remains in place. ld1 Administered Medications: No medications were administered Outcome: 15:51 Decision to Hospitalize by Provider. 16:01 Admitted to Med/surg accompanied by tech, via wheelchair, room 217, on monitor, with ld1 chart, Report called to elizabeth adorno 16:01 Condition: stable 16:01 Instructed on the need for admit. 16:03 Patient left the ED. ld1 Signatures: Amanda Ceja RN RN Socrates Stephen PA PA jr8 Cesar Cao RN RN bp Vy Buitrago RN RN ld1
[2022-02-19] MEDS ORDERED: ACETAMINOPHEN 325 MG TABLET PO PRN (16:00)
[2022-02-19] MEDS ORDERED: LOPERAMIDE HCL 2 MG CAPSULE PO PRN (16:00)
[2022-02-19] MEDS ORDERED: POLYETHYL GLY 3350 17 GM/DOSE PO PRN (16:00)
[2022-02-19] MEDS ORDERED: NACHLORIDE 0.45% 1,000 ML IV SCH ×2 (16:00→18:00)
[2022-02-19] MEDS ORDERED: ONDANSETRON 4 MG (ODT) TAB PO PRN (16:00)
[2022-02-19] MEDS ORDERED: PNEUMOCOCCAL VACCINE 0.5 ML IMVAC ONE (16:00)
[2022-02-19] MEDS ORDERED: DIPHENHYDRAMINE 25 MG TAB/CAP PO PRN (16:00)
[2022-02-19] MEDS ORDERED: ONDANSETRON 4 MG/2 ML VIAL IV PRN (16:00)
[2022-02-19] MEDS ORDERED: INFLUENZA VACCINE (for 6+ mo) 0.5 ML DOSE IMVAC ONE (16:00)
[2022-02-19] MEDS: METRONIDAZOLE 500mg IVPB 500 MG/100 ML BAG IV SCH (16:43)
[2022-02-19] MEDS: CIPROFLOXACIN 400mg IV 400 MG/200 ML BAG IV SCH (16:44)
[2022-02-19 17:39] LABS: Absolute Lymphocytes (CBC) 2.3 K/uL (0.7-4.9); Hematocrit 38.6 % (36.0-45.0); Lymphocytes % 15.5 % (15.3-44.8); MPV 8.5 fL (7.6-11.3); RBC Red Blood Cell Count 4.12 M/uL (3.86-4.86)
[2022-02-19 18:14] LABS: Albumin 4.1 g/dL (3.4-5.0); Bilirubin Direct 0.3 mg/dL (0-0.2); Phosphorus 3.1 mg/dL (2.5-4.9); Potassium 3.6 mmol/L (3.5-5.1); Protein, Total 8.7 g/dL (6.4-8.2); Thyroid Stimulating Hormone 0.525 uIU/mL (0.360-3.740)
--- NOTE | 2022-02-19 19:37 | RAD REPORT ---
EXAM DESCRIPTION: RAD - Chest Pa And Lat (2 Views) - 02/19/2022 7:29 pm CLINICAL HISTORY: abd pain Chest pain. COMPARISON: Chest Single View dated 03/08/2019; Chest Pa And Lat (2 Views) dated 05/25/2018; Abdomen Ac melony Series dated 01/23/2018; CHEST PA AND LAT 2 VIEW dated 12/25/2012 FINDINGS: The lungs are clear. The heart is mildly enlarged. No displaced fractures.
--- NOTE | 2022-02-19 19:40 | RAD REPORT ---
EXAM DESCRIPTION: CTAbdomen Pelvis W Contrast - 02/19/2022 7:29 pm CLINICAL HISTORY: Abdominal pain. abd pain COMPARISON: Chest Pa And Lat (2 Views) dated 02/19/2022 TECHNIQUE: Biphasic CT imaging of the abdomen and pelvis was performed with 100 ml non-ionic IV cont rast. All CT scans are performed using dose optimization technique as appropriate and may include automated exposure control or mA/KV adjustment according to patient size. FINDINGS: The lung bases are clear. The liver, spleen, pancreas, adrenal glands and kidneys are within normal limits. Cholecystectomy. No bowel obstruction, free air, free fluid or abscess. Moderate inflammatory changes are seen surroun ding a short segment of the descending colon in the left upper quadrant. The appendix is normal. No evidence of significant lymphadenopathy. No suspicious bony findings. IMPRESSION: Focal, moderate acute diverticulitis suspected proximal descending colon left upper quad rant. After appropriate therapy, suggest followup colonoscopy assessment.
[2022-02-19] MEDS: ENOXAPARIN 40 MG/0.4 ML SQ SCH (20:11)
[2022-02-20] MEDS: METRONIDAZOLE 500mg IVPB 500 MG/100 ML BAG IV SCH ×3 (00:33→16:14)
[2022-02-20 04:33] LABS: Absolute Lymphocytes (CBC) 1.7 K/uL (0.7-4.9); Hematocrit 32.8 % (36.0-45.0); MPV 7.8 fL (7.6-11.3); RBC Red Blood Cell Count 3.63 M/uL (3.86-4.86)
[2022-02-20 04:46] LABS: Magnesium 1.9 mg/dL (1.8-2.4); Potassium 3.5 mmol/L (3.5-5.1)
[2022-02-20] MEDS ORDERED: POTASSIUM CL SA 10 MEQ TAB PO ONE (08:00)
[2022-02-20] MEDS: HOME MED 1 EA UNK (Metoprolol Tartrate [Metoprolol Tartrate] 100 MG Tablet) PO SCH ×2 (09:06→20:08)
[2022-02-20] MEDS: TRIAMTERENE HCTZ PO SCH (09:07)
[2022-02-20] MEDS: ASPIRIN 81 MG PO SCH (09:08)
[2022-02-20] MEDS: ATORVASTATIN CALCIUM 40 MG PO SCH (09:09)
[2022-02-20] MEDS: FENOFIBRIC ACID 135 MG PO SCH (09:10)
[2022-02-20] MEDS: LEVOTHYROXINE SODIUM 100 MCG PO SCH (09:10)
[2022-02-20] MEDS: TELMISARTAN 80 MG PO SCH (09:11)
[2022-02-20] MEDS: ENOXAPARIN 40 MG/0.4 ML SQ SCH (09:20)
[2022-02-20] MEDS: CIPROFLOXACIN 400mg IV 400 MG/200 ML BAG IV SCH ×2 (09:20→20:08)
--- NOTE | 2022-02-20 10:42 | P.PN ---
Subjective Date of Service: 02/20/22 Chief Complaint: ABDOMEN PAIN. Subjective: Improving ABDOMEN PAIN IS LOT BETTER. STILL IN PAIN BUT NOT BAD. Review of Systems 10-point ROS is otherwise unremarkable Physical Examination - Vital Signs Temperature: 97.0 F Blood Pressure: 100/59 Pulse: 68 Respirations: 16 Pulse Ox (%): 95 - Physical Exam General: Oriented x3, Mild distress, Moderate distress HEENT: Atraumatic, PERRLA, EOMI Neck: Supple, JVD not distended Respiratory: Clear to auscultation bilaterally, Normal air movement Cardiovascular: Regular rate/rhythm, Normal S1 S2 Gastrointestinal: Normal bowel sounds, Tenderness (LUQ, MILD TO MODERATE.) Musculoskeletal: No tenderness Integumentary: No rashes Neurological: Normal speech, Normal tone, Normal affect Lymphatics: No axilla or inguinal lymphadenopathy - Studies Medications List Reviewed: Yes Assessment And Plan - Current Problems (Diagnosis) (1) Acute diverticulitis Current Visit: Yes Status: Acute Plan: LOT IMPROVED. IV ABX. DC IN AM POSSIBLE.
[2022-02-20] MEDS: NACHLORIDE 0.45% 1,000 ML IV SCH (11:53)
[2022-02-20 18:30] VITALS: BMI 30.7
[2022-02-20 21:21] VITALS: O2SAT 95
[2022-02-21] MEDS: METRONIDAZOLE 500mg IVPB 500 MG/100 ML BAG IV SCH ×2 (00:22→09:51)
[2022-02-21] MEDS: NACHLORIDE 0.45% 1,000 ML IV SCH (00:26)
[2022-02-21 08:57] LABS: Urine Appearance Clear (Clear); Urine Bilirubin Negative (Negative); Urine Blood Negative (Negative); Urine Color Yellow (Yellow); Urine Glucose Negative (Negative); Urine Protein Negative (Negative); Urine Specific Gravity 1.015 (1.005-1.030); Urine Urobilinogen 0.2 mg/dL (0.2-1.0)
[2022-02-21 08:58] LABS: Urine Microscopic Reflex ORDER UMIC
[2022-02-21] MEDS: ENOXAPARIN 40 MG/0.4 ML SQ SCH (09:00)
[2022-02-21] MEDS: ASPIRIN 81 MG PO SCH (09:00)
[2022-02-21 09:07] LABS: Urine Bacteria <20 /HPF (<20); Urine RBC NONE SEEN /HPF (NONE SEEN)
[2022-02-21] MEDS: TRIAMTERENE HCTZ PO SCH (09:46)
[2022-02-21] MEDS: HOME MED 1 EA UNK (Metoprolol Tartrate [Metoprolol Tartrate] 100 MG Tablet) PO SCH (09:47)
[2022-02-21] MEDS: FENOFIBRIC ACID 135 MG PO SCH (09:48)
[2022-02-21] MEDS: ATORVASTATIN CALCIUM 40 MG PO SCH (09:48)
[2022-02-21] MEDS: LEVOTHYROXINE SODIUM 100 MCG PO SCH (09:49)
[2022-02-21] MEDS: TELMISARTAN 80 MG PO SCH (09:49)
[2022-02-21] MEDS: CIPROFLOXACIN 400mg IV 400 MG/200 ML BAG IV SCH (09:54)
--- NOTE | 2022-02-21 12:11 | P.DS ---
Admission Date: 02/20/22 Discharge Date: 02/21/22 Disposition: ROUTINE DISCHARGE Discharge Condition: FAIR Reason for Admission: ABDOMEN PAIN. - Problems (1) Acute diverticulitis Current Visit: Yes Status: Acute Hospital Course: BK HAS IMPROVED WELL WITH IV ABX. SHE IS PAINFREE AND HAS TOLERATED FOOD. SHE WILL GO PAM ON CIPRO AND FLAGYL. FU IN OFFICE IN ONE WEEK. Vital Signs/Physical Exam: Temp Pulse Resp BP Pulse Ox 97.8 F 77 16 120/68 96 02/21/22 08:00 02/21/22 08:00 02/21/22 08:00 02/21/22 08:00 02/21/22 08:00 Laboratory Data at Discharge: WBC 12.2 K/uL (4.3-10.9) H D 02/20/22 04:08 Hgb 11.4 g/dL (12.0-15.0) L 02/20/22 04:08 Hct 32.8 % (36.0-45.0) L D 02/20/22 04:08 Plt Count 279 K/uL (152-406) 02/20/22 04:08 Sodium 138 mmol/L (136-145) 02/21/22 05:32 Potassium 4.0 mmol/L (3.5-5.1) 02/21/22 05:32 BUN 11 mg/dL (7-18) 02/21/22 05:32 Creatinine 0.80 mg/dL (0.55-1.3) 02/21/22 05:32 Glucose 99 mg/dL (74-106) 02/21/22 05:32 Phosphorus 3.1 mg/dL (2.5-4.9) 02/19/22 16:00 Magnesium 1.9 mg/dL (1.8-2.4) 02/20/22 04:08 Total Bilirubin 1.0 mg/dL (0.2-1.0) 02/19/22 16:00 AST 23 U/L (15-37) 02/19/22 16:00 ALT 28 U/L (12-78) 02/19/22 16:00 Alkaline Phosphatase 65 U/L (45-117) 02/19/22 16:00 Home Medications: Aspirin 1 tab PO DAILY 02/19/22 Atorvastatin Calcium 1 tab PO DAILY 02/19/22 Fenofibric Acid (Choline) [Fenofibric Acid] 1 cap PO DAILY 02/19/22 Levothyroxine Sodium [Levothyroxine] 1 tab PO DAILY 02/19/22 Metoprolol Tartrate 1 tab PO BID 02/19/22 Telmisartan 1 tab PO DAILY 02/19/22 Triamterene/Hydrochlorothiazid [Triamterene-Hctz 37.5-25 mg Cp] 1 cap PO DAILY 02/19/22 Vit C/E/Zn/Coppr/Lutein/Zeaxan [Preservision Areds 2 Softgel] 2 cap PO DAILY 02/19/22 Ciprofloxacin HCl [Cipro 250 MG Tablet*] 250 mg PO BID #20 tab 02/21/22 Metronidazole 500 mg PO BID #20 tablet 02/21/22 New Medications: Ciprofloxacin HCl [Cipro 250 MG Tablet*] 250 mg PO BID #20 tab Metronidazole 500 mg PO BID #20 tablet Followup: Romeo Carr MD [Primary Care Provider] - (Call to schedule appointment)
[2022-02-21 12:28] VITALS: BP 125/54; TEMP 97.2
[2022-02-24 10:47] LABS: Vitamin D 1,25-Dihydroxy Total 58 pg/mL (18-72); Vitamin D,1,25-OH2, D2 <8 pg/mL
== END 2022-02-21 13:00 | disposition home or self-care (01) | DRG 392 ==
LOC: EDSTATUS 15:20 → ER 15:20 → ERHOLD 15:26 → 2ND 15:54 → OBSVTOIN 02-20 16:15
PROVIDERS: ADMIT Internal Medicine; ATTEND Internal Medicine
DX: K57.32 Diverticulitis of large intestine without perforation or abscess without bleeding (principal); I10 Essential (primary) hypertension; K21.9 Gastro-esophageal reflux disease without esophagitis; E11.9 Type 2 diabetes mellitus without complications; Z88.2 Allergy status to sulfonamides; Z91.040 Latex allergy status; Z20.822 Contact with and (suspected) exposure to COVID-19
CPT/HCPCS: 36415; 71046; 74177; 80048; 80076; 81003; 81015; 82607; 82652; 83735; 84100; 84443; 85025; 87086; 87088; G0378; G0379; J0744; J1170; J1650; J2405; Q9967; U0003

== ENCOUNTER 2023-10-20 06:43 | Day surgery (SDC) | payer OTHER, MEDICARE ==
[2023-10-15 13:06] LABS: Absolute Lymphocytes (CBC) 1.7 K/uL (0.7-4.9); Hematocrit 38.7 % (36.0-45.0); Lymphocytes % 21.1 % (15.3-44.8); MCV 90.7 fL (80-100); MPV 7.2 fL (7.6-11.3); Platelets 341 thou/uL (152-406); RBC Red Blood Cell Count 4.27 M/uL (3.86-4.86)
--- NOTE | 2023-10-15 13:20 | RAD REPORT ---
EXAM DESCRIPTION: Danie Vivas And Abimbola (2 Views)10/15/2023 1:11 pm CLINICAL HISTORY: Preop for cardiac catheterization. Hypertension COMPARISON: 2021 FINDINGS: The lungs appear clear of acute infiltrate. The heart is normal size Loop recorder in place IMPRESSION: No acute abnormalities displayed
[2023-10-15 13:28] LABS: Potassium 4.2 mEq/L (3.5-5.1)
[2023-10-20] MEDS ORDERED: NA CHLORIDE 0.9% 500 ML ONE (06:54)
[2023-10-20] MEDS ORDERED: HEPA 1000U/500MLS 2,000 UNIT/1,000 ML BAG IV ONE (06:58)
[2023-10-20] MEDS ORDERED: LIDOCAINE 1% 20 ML MDV ONE (06:58)
[2023-10-20] MEDS ORDERED: MIDAZOLAM HCL 2 MG/2 ML INJ ONE (06:59)
[2023-10-20] MEDS ORDERED: FENTANYL CITR 100 MCG/2 ML ONE (06:59)
[2023-10-20] MEDS ORDERED: HEPARIN 10,000 UNIT/10 ML VIAL IV ONE (07:00)
[2023-10-20] MEDS ORDERED: VERAPAMIL HCL 10 MG/4 ML VIAL IV ONE (07:00)
[2023-10-20] MEDS ORDERED: HEPARIN 5000 UNIT/ML 1 ML VIAL ONE (07:00)
[2023-10-20] MEDS ORDERED: NITROGLYCERIN/D5W 50 MG/250 ML BTL IV ONE (07:05)
[2023-10-20 08:47] VITALS: TEMP 97.5
--- NOTE | 2023-10-20 09:24 | OP ---
Date of Procedure: 10/20/2023 Surgeon: JARRED HUMPHREY Procedures Performed: 1.Selective coronary angiogram. 2.Left heart catheterization. Indication: Abnormal stress test with chest pain. Access: Right radial artery 6-[place], closed with TR band. Complications: None. Bleeding: Less than 20 mL. Description Of Procedure: After risks, benefits, and alternatives were explained, patient agreed to procedure and signed informed consent. Patient was brought into cardiac catheterization laboratory, prepped and draped in the usual sterile fashion. Then, I accessed right radial artery using [employer] micropuncture kit. Placed a 6-[place] Slender sheath and took 5-[place] 4 catheter into the ao rtic root, engaged the left main, and took standard views and then in the RCA and took standard views and crossed the aortic valve over the wire into the LV, measured LVEDP and pullback. Not adequate g radient and then removed the catheter and the sheath, placed TR band with good hemostasis. Findings: 1.Left main large and normal. 2.LAD; large vessel, proximal 10% to 20%, mid 20% stenosis. Rest of the LAD is normal. Normal diag onal branches. 3.Circumflex, moderate size, nondominant, and normal. 4.RCA; dominant and normal. 5.LVEDP slightly elevated at 50 mmHg. Conclusion: 1.Mild nonobstructive coronary artery disease. 2.Mildly elevated LVEDP. Recommendation: Medical management. /MODL Voice ID: [id number] Report ID: [id number]
[2023-10-20 09:39] VITALS: O2SAT 98
[2023-10-20 10:33] VITALS: BP 110/65
--- NOTE | 2023-10-23 15:38 | EKG ---
Test Date: 2023-10-15 Test Time: 13:56:[address]: DEV MEASUREMENT RESULTS: Intervals: Rate: 61 MS: 182 QRSD: 70 QT: 390 QTc: 392 Pauline: P: 36 MS: 182 QRS: 26 T: 40 INTERPRETIVE STATEMENTS: Normal sinus rhythm Cannot rule out Anterior infarct, age undetermined Abnormal ECG Compared to ECG 03/08/2019 11:25:03 Myocardial infarct finding now present Sinus bradycardia no longer present Electronically Signed On 10-23-23 15:20:09 BUSINESS SERVICES MANAGER by Joseph Gonzalez
== END 2023-10-20 10:25 | disposition home or self-care (01) ==
LOC: CCL 06:43
PROVIDERS: ATTEND Internal Medicine
DX: I25.10 Atherosclerotic heart disease of native coronary artery without angina pectoris (principal); I65.23 Occlusion and stenosis of bilateral carotid arteries; I10 Essential (primary) hypertension; E78.2 Mixed hyperlipidemia; Z79.82 Long term (current) use of aspirin; Z79.899 Other long term (current) drug therapy; Z88.3 Allergy status to other anti-infective agents; Z82.49 Family history of ischemic heart disease and other diseases of the circulatory system
CPT/HCPCS: 93005; 85025; 80048; 36415; 83721; 85610; 85730; 71046; 93458; 76937; C1893; Q9966; J1644; J2001; J2250; J3010; J7040